=== PATIENT | female | born 1965 ===

== ENCOUNTER 2016-09-25 05:55 | Emergency (ER) | payer MEDICAID ==
[2016-09-25 06:16] VITALS: O2SAT 100
[2016-09-25] MEDS ORDERED: diaZEpam 10 mg/2 ml Inj IVP ONE (06:46)
--- NOTE | 2016-09-25 06:49 | ED PDOC ---
HPI: Back Time Seen by Provider: 09/25/16 06:12 Chief Complaint (Nursing): Back Pain Chief Complaint (Provider): Back Pain History Per: Patient History/Exam Limitations: no limitations Onset/Duration Of Symptoms: Persistent (1 week) Current Symptoms Are (Timing): Still Present Quality Of Discomfort: "Pain" Additional Complaint(s): Florencia Herrera is a 51 y/o female, with a past medical history of asthma, presenting to the ER on 09/25/2016 with spasm-like back pain x1 week. Patient was seen at [facility] a few days ago and was discharged routinely with a Rx for Tylenol. States pain began to resolve on its own but exacerbated over the past couple of days with radiation to her ribs, prompting a visit to the ED. Denies any associated n/v/d, fever, or cough. PMD-Ebenezer Hurd Past Medical History Reviewed: Historical Data, Nursing Documentation, Vital Signs Vital Signs: Last Vital Signs Temp 98.7 F 09/25/16 06:13 Pulse 99 H 09/25/16 06:13 Resp 14 09/25/16 06:13 BP 132/72 09/25/16 06:13 Pulse Ox 100 09/25/16 06:13 - Medical History PMH: Asthma Denies: Chronic Kidney Disease - Surgical History Surgical History: No Surg Hx - Family History Family History: States: Unknown Family Hx - Social History Current smoker - smoking cessation education provided: Yes (1 pack/day) - Home Medications Home Medications: Ambulatory Orders Medication Instructions Recorded Albuterol HFA [Ventolin HFA 90 09/25/16 mcg/actuation (8 g)] Ciprofloxacin HCl [Cipro] 250 mg PO BID #6 tab 09/25/16 Ibuprofen [Motrin] 600 mg PO TID 7 Days 09/25/16 - Allergies Allergies/Adverse Reactions: Allergies Allergy/AdvReac Type Severity Reaction Status Date / Time No Known Allergies Allergy Verified 09/25/16 06:12 Review of Systems ROS Statement: Except As Marked, All Systems Reviewed And Found Negative Constitutional: Negative for: Fever Respiratory: Negative for: Cough, Sputum Gastrointestinal: Negative for: Nausea, Vomiting, Diarrhea Musculoskeletal: Positive for: Back Pain Physical Exam - Reviewed Nursing Documentation Reviewed: Yes Vital Signs Reviewed: Yes - Physical Exam Appears: Positive for: Uncomfortable Head Exam: Positive for: ATRAUMATIC, NORMOCEPHALIC Skin: Positive for: Normal Color Eye Exam: Positive for: Normal appearance Neck: Positive for: Normal, Painless ROM, Supple Cardiovascular/Chest: Positive for: Regular Rate, Rhythm. Negative for: Murmur Respiratory: Positive for: Normal Breath Sounds. Negative for: Respiratory Distress Back: Positive for: Normal Inspection, Other (no spinal tenderness). Negative for: L CVA Tenderness, R CVA Tenderness, Vertebral Tenderness Extremity: Positive for: Normal ROM. Negative for: Deformity Neurologic/Psych: Positive for: Alert, Oriented. Negative for: Motor/Sensory Deficits - Laboratory Results Result Diagrams: 09/25/16 07:06 09/25/16 07:06 - ECG O2 Sat by Pulse Oximetry: 100 Medical Decision Making Medical Decision Makin:12 Initial Impression- 51 y/o female with back pain. Initial Plan- * EKG * CMP * CBC w/ differential * PTT * PT * Valium 10 mg IVP * Urinalysis * Re-assess 07:00 Pt signed out to Dr. Barak MD. Pending ED workup and re-eval. Documented by Milli Cancino, acting as a scribe for Moisés Fofana MD. All medical record entries made by the Scribe were at my direction and personally dictated by me. I have reviewed the chart and agree that the record accurately reflects my personal performance of the history, physical exam, medical decision making, and the department course for this patient. I have also personally directed, reviewed, and agree with the discharge instructions and disposition. Disposition - Clinical Impression Clinical Impression: Back pain, UTI (urinary tract infection) - Disposition Referrals: Ebenezer Hurd MD [Primary Care Provider] - 09/26/16 Disposition: Transfer of Care Disposition Time: 07:00 Condition: GOOD Additional Instructions: Return if not better in 3 days. Prescriptions: Ciprofloxacin HCl [Cipro] 250 mg PO BID #6 tab Ibuprofen [Motrin] 600 mg PO TID 7 Days Instructions: Urinary Tract Infection in Women (ED), Acute Low Back Pain (ED) Patient Signed Over To: Vinicio Cancino
[2016-09-25 07:18] LABS: BASO # 0.1 K/uL (0.0-0.2); BASO % 0.5 % (0.0-2.0); EOS # 0.8 K/uL (0.0-0.7); EOS % 6.3 % (0.0-4.0); HEMATOCRIT 39.3 % (34.0-47.0); LYMPH # 2.7 K/uL (1.0-4.3); LYMPH % 20.7 % (20.0-40.0); MEAN CELL VOLUME 89.9 fl (81.0-99.0); MEAN CORPUSCULAR HEMOGLOBIN 30.8 pg (27.0-31.0); MEAN CORPUSCULAR HGB CONC 34.3 g/dL (33.0-37.0); MEAN PLATELET VOLUME 8.5 fl (7.2-11.7); MONO % 7.7 % (0.0-10.0); NEUT # 8.4 K/uL (1.8-7.0); NEUT % 64.8 % (50.0-75.0); NRBC % 0.1 % (0.0-0.0); RED CELL DISTRIBUTION WIDTH 13.4 % (11.5-14.5)
--- NOTE | 2016-09-25 07:18 | ED PDOC ---
- Laboratory Results Result Diagrams: 09/25/16 07:06 09/25/16 07:06 Interpretation Of Abn Labs: 13 wbc, urine wbc, urine rbc - ECG O2 Sat by Pulse Oximetry: 100 Pulse Ox Interpretation: Normal - CT Scan/US ct Other Rad Studies (CT/US): Read By Radiologist Other Rad Interpretation: no acute - Progress ED Course And Treament: 700: Took over care from Dr. Fofana. Fu on labs. Here with back spasms. Given meds in ER. 755: Feels better, no pain. Urine wbc/rbc and blood wbc. Will ct to eval for stone/kidney inflammation. Stable. 943: Stable. AAOx3. Pain free. Tolerated PO. Ambulated with no issues. Fu with pcp. Disposition - Clinical Impression Clinical Impression: Back pain, UTI (urinary tract infection) - POA Present On Arrival: None - Disposition Referrals: Ebenezer Hurd MD [Primary Care Provider] - 09/26/16 Disposition: Routine/Home Disposition Time: 09:43 Condition: STABLE Additional Instructions: Return if not better in 3 days. Prescriptions: Ciprofloxacin HCl [Cipro] 250 mg PO BID #6 tab Ibuprofen [Motrin] 600 mg PO TID 7 Days Instructions: Acute Low Back Pain (ED), Urinary Tract Infection in Women (ED)
[2016-09-25 07:27] LABS: ALB/GLOB RATIO 1.1 (1.0-2.1); ALKALINE PHOSPHATASE 53 U/L (38-126); ALT/SGPT 30 U/L (9-52); AST/SGOT 22 U/L (14-36); BILIRUBIN,TOTAL 0.4 mg/dl (0.2-1.3); BLOOD UREA NITROGEN 15 mg/dl (7-17); CALCIUM 9.7 mg/dL (8.4-10.2); CARBON DIOXIDE 25 mmol/L (22-30); CHLORIDE 104 mmol/L (98-107); GFR AFRICAN-AMERICAN > 60; GLUCOSE,RANDOM 101 mg/dL (65-105); SODIUM 144 mmol/l (132-148); TOTAL PROTEIN 7.9 G/DL (6.3-8.2)
[2016-09-25 07:40] LABS: PARTIAL THROMBOPLASTIN TIME 27.7 SECONDS (23.3-32.5)
[2016-09-25 07:43] LABS: RBC URINE 8 /hpf (0-3); URINE BACTERIA RARE (<OCC); URINE BILIRUBIN NEGATIVE (NEGATIVE); URINE BLOOD NEGATIVE (NEGATIVE); URINE COLOR YELLOW (YELLOW); URINE GLUCOSE (UA) NEG (Normal); URINE KETONE NEGATIVE (NEGATIVE); URINE LEUKOCYTE ESTERASE LARGE Leu/uL (Negative); URINE PROTEIN NEGATIVE (NEGATIVE); URINE UROBILINOGEN 0.2-1.0 mg/dL (0.2-1.0); WBC URINE 192 /hpf (0-5)
--- NOTE | 2016-09-25 08:46 | CT ---
PROCEDURE: CT Abdomen and Pelvis without intravenous contrast HISTORY: R/O stone COMPARISON: None. TECHNIQUE: Axial and reformatted coronal and sagittal CT images of the abdomen and pelvis were obtained without IV or oral contrast administration.. Contrast Dose: 0 Radiation dose: Total exam DLP = 1033.12 mGy-cm. FINDINGS: LOWER THORAX: Unremarkable. LIVER: Unremarkable. No gross lesion or ductal dilatation. GALLBLADDER AND BILE DUCTS: Contracted gallbladder contains multiple gallstones. No evidence of acute cholecystitis. The biliary tree is not dilated. PANCREAS: Unremarkable. No gross lesion or ductal dilatation. SPLEEN: Unremarkable. ADRENALS: Unremarkable. No mass. KIDNEYS AND URETERS: Unremarkable. No hydronephrosis. No solid mass. VASCULATURE: Unremarkable. No aortic aneurysm. BOWEL: Unremarkable. No obstruction. No gross mural thickening. Mild constipation. APPENDIX: No evidence of appendicitis. PERITONEUM: Unremarkable. No free fluid. No free air. LYMPH NODES: Unremarkable. No enlarged lymph nodes. BLADDER: Unremarkable. REPRODUCTIVE: The uterus and adnexa are prominent in size. BONES: No acute fracture. OTHER FINDINGS: None. IMPRESSION: No evidence of nephrolithiasis or hydronephrosis. Contracted gallbladder contains multiple gallstones. No CT evidence of acute cholecystitis. No evidence of pancreatitis or appendicitis. Mild constipation.
[2016-09-25 10:08] VITALS: BP 120/71; PULSE 86; RESP 16; TEMP 98
--- NOTE | 2016-09-25 14:09 | CARD ---
APPROVED REPORT EKG Measurement Heart [id number] [id number] <Conclusion> Normal sinus rhythm Minimal voltage criteria for LVH, may be normal variant Borderline ECG
== END 2016-09-25 10:07 | disposition home or self-care (01) ==
LOC: H.ER 05:55 → MERGE 05:55 → H.ER 10:07
DX: N39.0 Urinary tract infection, site not specified (principal); M54.9 Dorsalgia, unspecified